=== PATIENT | male | born 1940 | race Caucasian/White ===

== ENCOUNTER 2020-03-07 17:56 | Emergency (ER) | payer OTHER, MEDICARE, SELFPAY ==
[2020-03-07 18:03] VITALS: BP 166/90; PULSE 82; RESP 22; TEMP 37.1; O2SAT 97
--- NOTE | 2020-03-07 19:14 | ED.ABDPAIN ---
HPI - Abdominal Pain General Chief Complaint: Urogenital-Male Stated Complaint: URINARY RETENTION Time Seen by Provider: 03/07/20 19:05 Source: RN notes reviewed History of Present Illness HPI narrative: Patient presents emergency department from home for urinary retention. Patient is currently on hospice for history of COPD. Patient also states a history of bladder cancer. Per hospice caregiver who is present the patient had a straight cath this morning with approximately 600 mL out but did not wish to have a Zacarias maintained at that time. He is unable to urinate since that time. Hospice came back out and attempted to place a Zacarias this afternoon was unable to do when patient was transported to the ED for further evaluation. Patient notes pressure in the lower abdomen denies any other symptoms at this time. Denies any fevers or chills nausea or vomiting Related Data Home Medications Medication Instructions Recorded Confirmed albuterol sulfate 90 mcg/actuation 1 puff INHALATION Q4H PRN 09/30/19 10/12/19 aerosol inhaler fluticasone fur. 100 mcg-umeclid 1 inhalation INHALATION Q24H 09/30/19 10/12/19 62.5 mcg-vilant 25 mcg inhalat.powder ipratropium bromide 0.02 % 2.5 ml INHALATION Q6H PRN 09/30/19 10/12/19 solution for inhalation levetiracetam 250 mg tablet 250 mg PO Q12H 10/12/19 10/12/19 sotalol 80 mg tablet 80 mg PO DAILY 10/12/19 10/12/19 Allergies Allergy/AdvReac Type Severity Reaction Status Date / Time adhesive tape Allergy Severe BLISTERS Verified 10/12/19 13:58 Review of Systems Review of Systems: Narrative: Gen.: Denies fevers or chills ENT: Denies congestion Respiratory: Denies shortness of breath or cough ports hospice for COPD CV: Denies chest pain or palpitations GI: Denies reports lower abdominal pain nausea, emesis or diarrhea see HPI Musculoskeletal: Denies back pain or muscle pain Neuro: Denies numbness, tingling, weakness or focal weakness Skin: Denies rash Except as documented, all other systems reviewed and negative PMFSH Past Medical History Medical History (Updated 03/07/20 @ 20:06 by Michel Persaud DO) Chronic obstructive pulmonary disease, unspecified Flatulence Night sweats Social History Social History Smoking status: Former smoker Alcohol intake: never Gender identity (if verbalized by the patient): Male Exam Narrative: Exam Narrative: APPEARANCE: No acute distress, nontoxic, resting in bed EYES: EOMI HEENT: Normocephalic, atraumatic, OMM RESPIRATORY: No respiratory distress Clear to auscultation bilaterally with no rhonchi wheezing or rales. CARDIOVASCULAR: Regular rate and rhythm without murmurs rubs or gallops. ABDOMINAL: Soft, mild tenderness in suprapubic region with mild distention noted, the remainder of the abdomen is soft and nontender Musculoskeletal, moves all extremities, no clubbing cyanosis or edema NEURO: Awake and alert. Following commands, speech normal, no focal deficits SKIN:: Warm, dry. No rashes lesions or abrasions PSYCHIATRIC: Normal affect/mood, Course Course Emergency Course: Zacarias catheter placed in ED. Patient feeling much better following this repeat abdomen exam soft nontender Discussed with Dr. Lund presentation work-up agrees with plan for discharge with Zacarias in place he was plan for Macrobid Discussed with patient results of workup and diagnosis. Discussed need for follow-up with primary care, proper use of medication, and reasons to return to the emergency department. Patient understands and agrees to current treatment plan Vital Signs Vital signs: Vital Signs Temperature 98.8 F 03/07/20 18:03 Pulse Rate 82 03/07/20 18:03 Respiratory Rate 22 H 03/07/20 18:03 Blood Pressure 166/90 H 03/07/20 18:03 Pulse Oximetry 97 03/07/20 18:03 Temperature 98.8 F 03/07/20 18:03 Pulse Rate 78 03/07/20 19:34 Respiratory Rate 20 03/07/20 19:34 Blood Pr
[2020-03-07 19:34] VITALS: BP 118/41; PULSE 78; RESP 20; O2SAT 100
[2020-03-07 19:38] LABS: Add Urine Microscopic? YES; Appearance Urine Clear (Clear); Bacteria Urine Trace /hpf; Bilirubin Urine Negative (Negative); Blood Urine 3+ (Negative); Color Urine Yellow (Yellow); Glucose Urine UA Negative (Negative); Ketones Urine Trace mg/dL (Negative); Leukocyte Esterase Ur Trace LEU/UL (Negative); Mucus Urine Rare /lpf; Nitrate Urine Negative (Negative); Protein Urine Negative (Negative); RBC Urine >75 /hpf (0-2); Specific Grav Ur 1.014 (1.001-1.035); Urobilinogen Urine Negative mg/dL (<2.0)
[2020-03-07] MEDS: NITROFURANTOIN MONOHYD MACROCR 100 MG CAP PO (20:23)
[2020-03-07 20:27] VITALS: BP 156/74; PULSE 80; RESP 20; O2SAT 92
--- NOTE | 2020-03-07 20:35 | PC.NURSE ---
called [facility] to transport patient to residence. ETA 30- 40 min.
--- NOTE | 2020-03-07 21:13 | PC.NURSE ---
De Jesus here.
[2020-03-07 21:44] VITALS: BP 145/72; PULSE 87; RESP 20; O2SAT 92
== END 2020-03-07 21:50 | disposition hospice, home (50) ==
PROVIDERS: Emergency Provider Emergency Medicine; PCP Internal Medicine
DX: N39.0 Urinary tract infection, site not specified (principal); R33.9 Retention of urine, unspecified; J44.9 Chronic obstructive pulmonary disease, unspecified
CPT/HCPCS: 51702; 81001; 87086; 99283; A9270